=== PATIENT | female | born 1935 | race Caucasian/White ===

== ENCOUNTER 2017-03-24 13:16 | Observation (INO) | payer MEDICAID ==
[2017-03-24 13:21] VITALS: BMI 28.3
[2017-03-24] MEDS: Sodium Chloride 0.9% 1,000 ML IV SCH ×2 (13:47→22:46)
[2017-03-24 13:57] LABS: HEMATOCRIT 40.9 % (36.0-48.0); MEAN CELL VOLUME 82.1 fL (80.0-105.0); MEAN CORPUSCULAR HEMOGLOBIN 26.3 pg (25.0-35.0); MEAN PLATELET VOLUME 10.7 fl (7.0-11.0); PLATELET COUNT 257 10^3/uL (120.0-450.0); RED CELL DISTRIBUTION WIDTH 14.7 % (11.5-14.5); WHITE BLOOD COUNT 9.2 10^3/ul (4.5-11.0)
--- NOTE | 2017-03-24 14:04 | ED PDOC ---
Arrival/HPI - General Chief Complaint: Medical Clearance Time Seen by Provider: 03/24/17 13:18 Historian: Patient, Family, [employer] (Chart Changer: Armando Mota, [id number]) - History of Present Illness Narrative History of Present Illness (Text): 03/24/17 13:59 Patient is an 82 year old female whose past medical history includes diabetes and hypertension who presents to the emergency department with generalized weakness for the past 2 weeks. History obtained by family member, translated by abrasive grinder. Family member reports the patient has not been eating well and has spent an increasing amount of time in bed. He states she only gets up for a few minutes at a time before having to lie down again. He also states she may have fell as she has some bruises on her body. Family reports they moved from [place] a few years ago. Time/Duration: > week Symptom Onset: Gradual Symptom Course: Worsening Modifying Factors (Text): None Past Medical History - Provider Review Nursing Documentation Reviewed: Yes - Cardiac Hx Cardiac Disorders: Yes Hx Hypertension: Yes - Endocrine/Metabolic Hx Endocrine Disorders: Yes Hx Diabetes Mellitus Type 2: Yes - Psychiatric Hx Substance Use: No Family/Social History - Physician Review Nursing Documentation Reviewed: Yes Family/Social History: Unknown Family HX Smoking Status: Never Smoked Hx Alcohol Use: No Hx Substance Use: No Allergies/Home Meds Allergies/Adverse Reactions: Allergies Unobtainable Allergy (Verified 03/24/17 13:20) Home Medications: Home Meds Medication Instructions Recorded Confirmed Alogliptin Benzoate [Alogliptin] 25 mg PO DAILY 03/24/17 03/24/17 Calcium Carbonate/Vitamin D3 1 each PO DAILY 03/24/17 03/24/17 [Oyster Shell Calcium-Vit D Tab] Carvedilol [Coreg] 3.125 mg PO BID 03/24/17 03/24/17 Furosemide [Lasix] 40 mg PO DAILY 03/24/17 03/24/17 Metformin HCl [Glucophage] 850 mg PO BID 03/24/17 03/24/17 Omeprazole 40 mg PO DAILY 03/24/17 03/24/17 Potassium Chloride [K-Dur 20] 20 meq PO DAILY 03/24/17 03/24/17 Ramipril [Altace] 5 mg PO DAILY 03/24/17 03/24/17 Tolterodine Tartrate [Tolterodine 4 mg PO DAILY 03/24/17 03/24/17 Tartrate ER] Review of Systems - Review of Systems Systems not reviewed;Unavailable: Dementia Constitutional: Fatigue Eyes: absent: Vision Changes ENT: absent: Hearing Changes Respiratory: absent: SOB, Cough Gastrointestinal: Appetite Changes (Decreased) Physical Exam - Physical Exam Narrative Physical Exam (Text): Head: Atraumatic. Normocephalic. Eyes: PERRL. EOMI. Conjunctivae are not pale. ENT: Mucous membranes are moist and intact. Oropharynx is clear and symmetric. No facial edema or erythema. Neck: Supple. Full ROM. No JVD. No lymphadenopathy. No meningeal signs. Cardiovascular: Regular rate. Regular rhythm. Systolic murmur. Distal pulses intact. Pulmonary/Chest: No evidence of respiratory distress. Clear to auscultation bilaterally. No wheezing, rales or rhonchi. Abdominal: Soft and non-distended. There is no tenderness. No rebound, guarding, or rigidity. No organomegaly. Good bowel sounds. Back: No CVA tenderness. Mild paraspinal lumbar tenderness. Extremities: No edema. No cyanosis. No clubbing. Full range of motion in all extremities. No calf tenderness. Full range of motion of hip, knee and ankle with no apparent pain or deformity. Rectal: no melena or gross blood Skin: Skin is warm and dry. No petechiae. No purpura. Neurological: Alert, awake. No facial droop. No meningeal signs. Motor strength appears intact and equal in upper and lower extremities. Psychiatric: Patient follows commands. When patient is asked questions she will at times answer in Icelandic. Patient's mental status at baseline reportedly. 03/24/17 17:13 Physical Exam Limitations: Altered Mental Status Vital Signs Reviewed: Yes Vital Signs Temp Pulse Resp BP Pulse Ox 03/24/17 15:17 91 H 23 146/71 98 03/24/17 13:22 98.1 F 95 H 16 153/69 H 98 Temperature: Afebrile Blood Pressure: Normal Pulse: Regular Respiratory Rate: Normal Appearance: Positive for: Non-Toxic Finger Stick Blood Glucose: 201 Medical Decision Making ED Course and Treatment: Differential Diagnosis include but are not limited to: Dehydration vs sepsis vs CAD Plan: History obtained by patient's family by translation. Will call PMD for further information, check labs and imaging. Case discussed with Dr. Felix, states patient with history of dementia, diabetes. Family states that she is at her baseline mental status. They deny falls or trauma. On exam, she has some lower back pain but no obvious deformities. She will move all extremities. Family reports two week history of increased weakness as well as loss of appetite. With serial exams, abdomen is soft and nontender. She does not reports chest pain or abdominal pain. Given history of diabetes, labs and EKG obtained: LABS: WBC 9.2 HGB 13.1 HCT 40.9 PLT 257 PT 10.7 INR 0.99 PTT 30.5 GLUCOSE 189 BUN 46 CREATININE 1.4 SODIUM 131 POTASSIUM 4.5 CHLORIDE 100 CO2 22 ANION GAP 14 CPK 26 TROP 0.05 VBG LACT 2.3 Progress Notes: Patient's symptoms for several weeks. Abdomen remains soft and nontender. I suspect a component of dehydration, iv fluids given. Lactate mildly elevated although patient is not hypotensive or tachycardic. Straight cath urine obtained, suggestive of uti. IV antibiotics ordered as well as cultures. Troponin 0.05. She denies chest pain or sob, although due to history of increased weakness as well as cardiac risk factors, will admit to telemetry bed as family states that she has been too weak to stand. Question of near syncope but no LOC reported over past several weeks. PROCEDURE: CT HEAD WITHOUT CONTRAST. Route Deliverer : Elkin Maria MD Report Date : 03/24/2017 14:34:06 IMPRESSION: No evidence of acute infarct. No intracranial mass or hemorrhage. Probable remote ischemic change right external capsule and vaca radiata. As per family, her mental status and speaking is at her baseline. Patient here with son. Chest X-ray Route Deliverer: Dr. Janie Dickinson MD IMPRESSION: No active pulmonary disease Dr. Felix updated with labs and treatment plan. 03/24/17 17:19 - Lab Interpretations Lab Results: 03/24/17 13:35 03/24/17 13:35 Lab Results 03/24/17 16:00: Urine Color Light yellow, Urine Appearance Clear, Urine pH 6.0, Ur Specific [place] <= 1.005, Urine Protein Negative, Urine Glucose (UA) Negative, Urine Ketones Negative, Urine Blood Trace-intact H, Urine Nitrate Negative, Urine Bilirubin Negative, Urine Urobilinogen 0.2, Ur Leukocyte Esterase Large H, Urine RBC Pending, Urine WBC Pending 03/24/17 13:35: Sodium 131 L, Chloride 100, Potassium 4.5, Carbon Dioxide 22, Anion Gap 14, BUN 46 H, Creatinine 1.4, Est GFR ( Amer) 44, Est GFR (Non- Af Amer) 36, Random Glucose 189 H, Calcium 9.5, Magnesium 1.8, Total Bilirubin 0.5, AST 27, ALT 21, Alkaline Phosphatase 90, Lactate Dehydrogenase 419, Total Creatine Kinase 26 L, Troponin I 0.05, Total Protein 7.4, Albumin 3.4, Globulin 4.0, Albumin/Globulin Ratio 0.9 L 03/24/17 13:35: pO2 61 H, VBG pH 7.33, VBG pCO2 45.0, VBG HCO3 23.7, VBG Total CO2 25.1, VBG O2 Sat (Calc) 93.1 H, VBG Base Excess -2.4 L, VBG Potassium 4.8, Sodium 131.0 L, Chloride 100.0, Glucose 199 H, Lactate 2.3 H, FiO2 21.0, Venous Blood Potassium 4.8 03/24/17 13:35: PT 10.7, INR 0.99, APTT 30.5 03/24/17 13:35: WBC 9.2, RBC 4.98, Hgb 13.1, Hct 40.9, MCV 82.1, MCH 26.3, MCHC 32.0, RDW 14.7 H, Plt Count 257, MPV 10.7, Neutrophils % (Manual) 37 L, Band Neutrophils % 1, Lymphocytes % (Manual) 52 H, Atypical Lymphs % 2 H, Monocytes % (Manual) 8 H, Platelet Evaluation Normal, Anisocytosis (manual) Slight - RAD Interpretation Radiology Orders: 03/24/17 13:49 HEAD W/O CONTRAST [CT] Stat 03/24/17 13:50 CHEST ONE VIEW [RAD] Stat - EKG Interpretation EKG Interpretation (Text): 03/24/17 17:16 EKG at 13:54 normal sinus rhythm rate of 88 with ow voltage qrs, cannot rule out anterior infarct NO prior EKG for comparison. Interpreted by ED Physician: Yes Type: 12 lead EKG Comparison: No previous EKG avail. - Medication Orders Current Medication Orders: Sodium Chloride (Sodium Chloride 0.9%) 1,000 mls @ 100 mls/hr IV .Q10H BEAU Last Admin: 03/24/17 13:47 Dose: 100 mls/hr Ceftriaxone Sodium (Rocephin 1 Gram Ivpb) 1 gm in 100 mls @ 200 mls/hr IVPB ONCE STA PRN Reason: Protocol Stop: 03/24/17 17:24 Discontinued Medications Sodium Chloride (Sodium Chloride 0.9%) 500 mls @ 1,000 mls/hr IV .Q30M STA Stop: 03/24/17 16:34 Last Admin: 03/24/17 16:52 Dose: 1,000 mls/hr - Scribe Statement The provider has reviewed the documentation as recorded by the Jose R Lezama Provider Scribe Attestation: All medical record entries made by the Chaunceye were at my direction and personally dictated by me. I have reviewed the chart and agree that the record accurately reflects my personal performance of the history, physical exam, medical decision making, and the department course for this patient. I have also personally directed, reviewed, and agree with the discharge instructions and disposition. Disposition/Present on Arrival - Present on Arrival Any Indicators Present on Arrival: No History of DVT/PE: No History of Uncontrolled Diabetes: No Urinary Catheter: No History of Decub. Ulcer: No History Surgical Site Infection Following: None - Disposition Have Diagnosis and Disposition been Completed?: Yes Diagnosis: Dehydration, UTI (urinary tract infection) Disposition: HOSPITALIZED Disposition Time: 16:00 Patient Plan: Observation, Telemetry Condition: FAIR Referrals: Alvin Felix MD [Primary Care Provider] - Follow up with primary
[2017-03-24 14:06] LABS: ADD MANUAL DIFF? YES
[2017-03-24 14:07] LABS: ALB/GLOB RATIO 0.9 (1.1-1.8); BILIRUBIN,TOTAL 0.5 mg/dL (0.2-1.3); CALCIUM 9.5 mg/dL (8.4-10.5); MAGNESIUM 1.8 mg/dL (1.7-2.2); POTASSIUM 4.5 mmol/L (3.6-5.0); TOTAL PROTEIN 7.4 g/dL (5.8-8.3)
[2017-03-24 14:18] LABS: TROPONIN I 0.05 ng/mL
[2017-03-24 14:25] LABS: VENOUS BLOOD GAS BASE EXCESS -2.4 mmol/L (0.0-2.0); VENOUS BLOOD PH 7.33 (7.32-7.43)
[2017-03-24 14:33] LABS: ANISOCYTOSIS SLIGHT; ATYPICAL LYMPHOCYTE 2 % (0.0-0.0); BAND 1 % (0-2); NEUTROPHIL 37 % (50.0-70.0); PLATELET ESTIMATE NORMAL (NORMAL)
--- NOTE | 2017-03-24 14:35 | CT ---
PROCEDURE: CT HEAD WITHOUT CONTRAST. HISTORY: ams, weakness COMPARISON: None available. TECHNIQUE: Axial computed tomography images were obtained through the head/brain without intravenous contrast. Radiation dose: Total exam DLP = 757.40 mGy-cm. This CT exam was performed using one or more of the following dose reduction techniques: Automated exposure control, adjustment of the mA and/or kV according to patient size, and/or use of iterative reconstruction technique. FINDINGS: HEMORRHAGE: No intracranial hemorrhage. BRAIN: No mass effect or edema. White matter low attenuation in the right external capsule extending through the right vaca radiata. Likely focal remote white matter ischemic change. No evidence of acute infarct. Mild periventricular white matter lucency consistent with microvascular white matter ischemic change. VENTRICLES: Unremarkable. No hydrocephalus. CALVARIUM: Unremarkable. PARANASAL SINUSES: Unremarkable as visualized. No significant inflammatory changes. MASTOID AIR CELLS: Unremarkable as visualized. No inflammatory changes. OTHER FINDINGS: None. IMPRESSION: No evidence of acute infarct. No intracranial mass or hemorrhage. Probable remote ischemic change right external capsule and vaca radiata.
[2017-03-24 14:43] LABS: INR 0.99 (0.93-1.08); PARTIAL THROMBOPLASTIN TIME 30.5 Seconds (23.7-30.8)
--- NOTE | 2017-03-24 15:31 | RAD ---
PROCEDURE: CHEST RADIOGRAPH, 1 VIEW HISTORY: weakness COMPARISON: None available. FINDINGS: LUNGS: The lungs are well inflated and clear. PLEURA: No pneumothorax or pleural fluid seen. CARDIOVASCULAR: The heart is normal in size. Atherosclerotic aortic arch calcifications are present. OSSEOUS STRUCTURES: No significant abnormalities. VISUALIZED UPPER ABDOMEN: Normal. OTHER FINDINGS: None. IMPRESSION: No active pulmonary disease.
[2017-03-24] MEDS ORDERED: Sodium Chloride 0.9% 500 ML IV STA (16:05)
[2017-03-24 16:35] LABS: URINE BILIRUBIN NEGATIVE (NEGATIVE); URINE BLOOD TRACE-INTACT (NEGATIVE); URINE GLUCOSE (UA) NEGATIVE (NEGATIVE); URINE KETONE NEGATIVE (NEGATIVE); URINE LEUKOCYTE ESTERASE LARGE Leu/uL (NEGATIVE); URINE PROTEIN NEGATIVE mg/dL (<30 mg/dL); URINE UROBILINOGEN 0.2 E.U./dL (<1 E.U./dL)
[2017-03-24 16:42] LABS: URINE APPEARANCE CLEAR (CLEAR); URINE COLOR LIGHT YELLOW (YELLOW)
[2017-03-24] MEDS ORDERED: cefTRIAXone 1 gm 1 GM/100 ML BAG IVPB STA (16:55)
[2017-03-24 17:13] LABS: URINE AMORPHOUS SEDIMENT MODERATE; URINE BACTERIA LARGE (NEG); URINE EPITHELIAL CELLS 0 - 2 /hpf (0-5); URINE RBC 0 - 2 /hpf (0-2); URINE WBC 0 - 2 /hpf (0-6)
--- NOTE | 2017-03-24 18:27 | CARD ---
APPROVED REPORT EKG Measurement Heart [id number] IA [id number] <Conclusion> Normal sinus rhythm Possible Left atrial enlargement Low voltage QRS Cannot rule out Anterior infarct, age undetermined Abnormal ECG
[2017-03-24 20:03] LABS: VENOUS BLOOD GAS BASE EXCESS -3.2 mmol/L (0.0-2.0); VENOUS BLOOD PH 7.33 (7.32-7.43)
--- NOTE | 2017-03-25 00:06 | CP.PCM.PN ---
Subjective - Date & Time of Evaluation Date of Evaluation: 03/25/17 Time of Evaluation: 00:29 - Subjective Subjective: Nurse calls and tells me that patient had an episode of Mobitz II. I checked with playground monitor Magdy, as per whom patient had a 3 second episode of Mobitz II. I was told patient was asymptomatic. 125/58, Temp 98*F. I reviewed chart and ordered an EKG. Will see patient. She was seen at bedside. Spoke to her with help of nephwilbert Anaya. Has no new complaints after the Mobitz II was noticed. Complained of both feet pain for 2 months . No other complaints. This 82 year old woman was admitted with syncope, dehydration, UTI. Has PMH of DM ,HTN. Objective - Vital Signs/Intake and Output Vital Signs (last 24 hours): Temp Pulse Resp BP Pulse Ox 98.1 F 96 H 18 154/78 H 98 03/24/17 13:22 03/24/17 20:35 03/24/17 22:50 03/24/17 20:41 03/24/17 20:35 - Medications Medications: Current Medications Sodium Chloride (Sodium Chloride 0.9%) 1,000 mls @ 100 mls/hr IV .Q10H BEAU Last Admin: 03/24/17 22:46 Dose: 100 mls/hr - Labs Labs: PT 10.7 Seconds (9.9-11.8) 03/24/17 13:35 INR 0.99 (0.93-1.08) 03/24/17 13:35 APTT 30.5 Seconds (23.7-30.8) 03/24/17 13:35 - Constitutional Appears: Well, No Acute Distress - Head Exam Head Exam: ATRAUMATIC, NORMAL INSPECTION, NORMOCEPHALIC - Eye Exam Eye Exam: Normal appearance - ENT Exam ENT Exam: Normal External Ear Exam - Neck Exam Neck Exam: Normal Inspection - Respiratory Exam Respiratory Exam: NORMAL BREATHING PATTERN - Cardiovascular Exam Cardiovascular Exam: absent: JVD - GI/Abdominal Exam GI & Abdominal Exam: absent: Distended - Rectal Exam Rectal Exam: Deferred - Extremities Exam Extremities Exam: Normal Inspection - Back Exam Back Exam: NORMAL INSPECTION - Neurological Exam Neurological Exam: Alert, Awake - Psychiatric Exam Psychiatric exam: Normal Affect, Normal Mood - Skin Skin Exam: Normal Color Assessment and Plan - Assessment and Plan (Free Text) Assessment: Mobitz II no sustained. Both feet pain-Diabetic neuropathy. HTN. UTI. Syncope. Dehydration. Plan: Observation. EKG------>NSR. Q wave in V2. Tylenol 650 mg PO x 1. Continue present management.
[2017-03-25] MEDS: Sodium Chloride 0.9% 1,000 ML IV SCH ×2 (10:55→21:31)
[2017-03-25] MEDS ORDERED: TOLTERODINE TARTRATE 4 MG PO SCH (13:30)
[2017-03-25] MEDS ORDERED: Non Formulary Medication (Alogliptin Benzoate [Alogliptin] 25 MG) PO SCH (13:30)
[2017-03-25] MEDS ORDERED: Non Formulary Medication (Omeprazole [Omeprazole] 40 MG) PO SCH (13:30)
--- NOTE | 2017-03-25 14:00 | CARD ---
APPROVED REPORT EKG Measurement Heart [id number] MI [id number] <Conclusion> Normal sinus rhythm Septal infarct, age undetermined Abnormal ECG
[2017-03-25] MEDS: Potassium Chloride 20 mEq ER Tab PO SCH (17:58)
[2017-03-26 01:24] VITALS: O2SAT 97
[2017-03-26] MEDS ORDERED: Pantoprazole 40 mg EC Tab PO SCH ×2 (07:30→10:00)
[2017-03-26 09:20] LABS: BLOOD UREA NITROGEN 20 mg/dL (7-21); CALCIUM 8.7 mg/dL (8.4-10.5); CARBON DIOXIDE 19 mmol/L (21-33); CHLORIDE 113 mmol/L (98-107); GFR AFRICAN-AMERICAN > 60; GLUCOSE,RANDOM 87 mg/dL (70-110); POTASSIUM 4.6 mmol/L (3.6-5.0); SODIUM 138 mmol/L (132-148)
[2017-03-26] MEDS: Potassium Chloride 20 mEq ER Tab PO SCH (09:31)
[2017-03-26] MEDS: Sodium Chloride 0.9% 1,000 ML IV SCH (09:34)
[2017-03-26] MEDS ORDERED: Non Formulary Medication (Alogliptin Benzoate [Alogliptin] 25 MG) PO SCH (10:00)
[2017-03-26] MEDS ORDERED: TOLTERODINE TARTRATE 4 MG PO SCH (10:00)
[2017-03-26 11:32] VITALS: BP 142/61; PULSE 96; RESP 16; TEMP 98
[2017-03-26] MEDS ORDERED: cefTRIAXone 1 gm 1 GM/100 ML BAG IVPB SCH (13:00)
--- NOTE | 2017-03-27 12:04 | HP ---
The patient came on the and evaluated in Emergency Room because of weakness for the last 2 weeks . Otherwise, no new complaint and no change in his status. HISTORY OF PRESENT ILLNESS: An 82-year-old female, history of diabetes, hypertension, chronic taryn ia, obesity, chronic arthritis, difficulty gait disorder. Basically, patient stays in the bed at [facility] all the time. Daughter taking care of her. She noticed that she is weak more than usual. Brought into the ER, found to have urinary tract infection, a little bit of dehydration and was admitted for observation. PAST MEDICAL HISTORY: As I mentioned, diabetes, hypertension, obesity, arthritis, gait disorders, ch ronic leg edema, glaucoma. ALLERGIES: As far as they know, there is no known allergy, MAYBE ADVIL SHE MENTIONS. SOCIAL HISTORY: No smoking or drinking. She lives at home, daughter orthotic assistant. REVIEW OF SYSTEMS: As in the present illness. PHYSICAL EXAMINATION: On the : VITAL SIGNS: Temperature 98.2, heart rate 74, blood pressure 159/74, respirations 18. HEAD AND NECK: Normal. No JVD, no thyromegaly. CHEST: Clear, good air entry. CARDIAC: First sound, second sound normal. ABDOMEN: Soft, obese, nontender. EXTREMITIES: No edema. NEUROLOGIC: Normal. LUNGS: Clear, inflated, no active lung disease. Had a CT scan of the head. There is no any acute bleed and it shows no evidence of acute infarctions , no mass, no hemorrhage, some probably remote ischemic changes, right external capsule and vaca ra diata. The patient also had laboratory studies, which showed CBC: White count 9.2, hemoglobin 13.1, hematoc rit 40.9, platelets is 257. Chemistry: Sodium 138, potassium 4.6, chloride 113, bicarb 19, BUN 20, creatinine 1, blood sugar 87 and calcium 8.7. The patient also had a UA, which shows large leukocyte s, white cells 0-5. The patient has a PT, PTT was normal. She had an ABG, which shows venous blood, venous blood gas, CO2 45, pH 7.33 and pO2 61. Lactate level on repeat ABGs was initially 2.3, later on 1.4, which is normal in room air. IMPRESSION AND PLAN: 1. Acute urinary tract infection. We will start the patient on IV Rocephin. Continue IV hydration and will follow up clinically. 2. Dementia, hypertension, history of leg edema. Continue current medications. 3. Diabetes type 2. Continue 850 b.i.d. and will follow up clinically. Resume all her previous medication she at home including aspirin 81 mg daily plus Vantin 200 mg b.i.d. for urinary tract infection. The patient also had a UA, which shows gram-negative [place] a coli. Discharge home. Repeat UA and BMP within a week after finishing antibiotic. Alvin Felix MD cc: 223 TT: 03/27/2017 12:03:15 en
--- NOTE | 2017-03-27 18:29 | DS ---
The patient was evaluated and treated for UTI. The patient has no new complaint. She is stable. Du ring observation, she has no new complaints. She is back to normal. There is no significant change. PHYSICAL EXAMINATION: VITAL SIGNS: Temperature 98, heart rate is 73, blood pressure 131/69, respiration 19. HEAD AND NECK: Normal. No JVD. No thyromegaly. CHEST: Clear. Good air entry. CARDIAC: First sound, second sound normal. ABDOMEN: Soft, obese and nontender. EXTREMITIES: No edema. NEUROLOGIC: Normal. LABORATORY DATA: The patient's repeat lab shows sodium 138, potassium 4.6, chloride 113, bicarb 19, BUN 20, creatinine 1, blood sugar is 85, calcium is 8.7. Urine culture shows E. coli. DISCHARGE DIAGNOSES: 1. Urinary tract infections. Continue Vantin b.i.d. for 1 week. Repeat labs, urine culture in a we ek and BMP. 2. Hypertension. Dehydration is stable, better. 3. Dementia. 4. Generalized weakness. Continue care at home. Follow up as outpatient in the office, and bring h er back if there are any problems. Alvin Felix MD cc: 223 TT: 03/27/2017 18:28:27 malinda
== END 2017-03-26 18:22 | disposition home or self-care (01) ==
LOC: ED 13:16 → ERH 16:59 → 2RSO 21:24
PROVIDERS: ADMIT Internal Medicine; ATTEND Internal Medicine
DX: E86.0 Dehydration (principal); N39.0 Urinary tract infection, site not specified; R55 Syncope and collapse; F03.90 Unspecified dementia, unspecified severity, without behavioral disturbance, psychotic disturbance, mood disturbance, and anxiety; E11.42 Type 2 diabetes mellitus with diabetic polyneuropathy; I10 Essential (primary) hypertension; E66.9 Obesity, unspecified; H40.9 Unspecified glaucoma; R60.0 Localized edema; I44.1 Atrioventricular block, second degree; M19.90 Unspecified osteoarthritis, unspecified site
CPT/HCPCS: 36415; 70450; 71010; 80048; 80053; 81001; 82550; 82803; 82948; 83615; 83735; 84484; 85025; 85610; 85730; 87040; 87086; 87181; 87205; 93005; 96365; 99285; G0378; J0696; J7040